=== PATIENT | female | born 1995 | race Caucasian/White ===

== ENCOUNTER 2022-04-28 11:16 | Emergency (ER) | payer OTHER ==
[2022-04-28 12:19] LABS: Appearance Clear (Clear); Bacteria None Seen /HPF (None Seen); Bilirubin Negative (Negative); Blood Negative (Negative); Epithelial Cells Rare /HPF (None Seen); Glucose, Urine Negative (Negative); Hyaline Casts NONE SEEN /LPF (0-2); Ketones Negative (Negative); Leukocyte Esterase Moderate (Negative); Nitrite Negative (Negative); Protein,Urine Dip Negative (Negative); RBC 0-2 /HPF (0-5); Specific Gravity <=1.005 (1.005-1.030); Urobilinogen 0.2 mg/dL (0.2); WBC 21-50 /HPF (0-5)
[2022-04-28 12:20] LABS: ADD URINE CULTURE? YES (NO)
[2022-04-28 12:22] VITALS: O2SAT 98
--- NOTE | 2022-04-28 12:28 | XRAY ---
Indication: Pain. Comparison: None Early OB ultrasound demonstrates single intrauterine with heart rate 155 BPM. Mean crown-rump length measures 6.31 cm corresponding to 12 weeks 5 days.. No subchorionic hemorrhage. Neither ovaries are seen. No suspicious adnexal mass or free fluid. Impression: Single viable intrauterine measuring 12 weeks 5 days. Expected date confinement is November 05, 2022.
[2022-04-28] MEDS ORDERED: Macrobid 100MG Capsule PO ONE (12:49)
--- NOTE | 2022-04-28 12:53 | ERPHSYRPT ---
- History of Present Illness Time Seen by Provider: 04/28/22 12:54 Source: patient Exam Limitations: no limitations Patient Subjective Stated Complaint: PT states "I am 12 weeks and I have had some pain in my belly, hips, and back." Triage Nursing Assessment: Pt presented alert and oriented X 3, skin pwd. Pt ambulates with an upright steady gait, able to speak in clear full sentences pt in no apparent respiratory distress. Physician History: Patient is a 26-year-old female currently 12 weeks presents to our ED for evaluation of pelvic cramps. Symptoms have been ongoing for approximately 2 days. No trauma. No fever. No vaginal discharge. No diarrhea. No nausea or vomiting. No rash. Symptoms are mild to moderate in intensity. No specific worsening improving factors. Patient voices no other complaints or concerns at this time. Portions of this note were created with voice recognition technology. There may be grammatical, spelling, punctuation or sound alike errors Timing/Duration: day(s) (2 days) Severity: moderate Modifying Factors: Improves With: nothing Associated Symptoms: denies symptoms Allergies/Adverse Reactions: amoxicillin Allergy (Severe, Verified 04/28/22 11:35) Rash Sulfa (Sulfonamide Antibiotics) Allergy (Severe, Verified 04/28/22 11:35) Rash Home Medications: Vit37/Iron/Folic Acid [Prenata Chewable Tablet] 1 each PO DAILY 04/28/22 [History] Hx Tetanus, Diphtheria Vaccination/Date Given: Yes Hx Influenza Vaccination/Date Given: No Hx Pneumococcal Vaccination/Date Given: No Immunizations Up to Date: Yes Travel Risk - International Travel Have you traveled outside of the country in past 3 weeks: No - Coronavirus Screening Are you exhibiting any of the following symptoms?: No Close contact with a COVID-19 positive Pt in past 14-21 Days: No - Vaccine Status Have you recieved a Covid-19 vaccination: No - Review of Systems Constitutional: No Symptoms, No Fever, No Chills Eyes: No Symptoms Ears, Nose, & Throat: No Symptoms Respiratory: No Symptoms, No Cough, No Dyspnea Cardiac: No Symptoms, No Chest Pain, No Edema, No Syncope Abdominal/Gastrointestinal: No Symptoms, No Abdominal Pain, No Nausea, No Vomiting, No Diarrhea Genitourinary Symptoms: No Symptoms, No Dysuria Musculoskeletal: No Symptoms, No Back Pain, No Neck Pain Skin: No Symptoms, No Rash Neurological: No Symptoms, No Dizziness, No Focal Weakness, No Sensory Changes Psychological: No Symptoms Endocrine: No Symptoms Hematologic/Lymphatic: No Symptoms Immunological/Allergic: No Symptoms All Other Systems: Reviewed and Negative - Past Medical History Pertinent Past Medical History: No - Past Surgical History Past Surgical History: No - Social History Smoking Status: Former smoker Exposure to second hand smoke: Yes Drug Use: none Patient Lives Alone: No - Female History Hx Last Menstrual Period: 12/2021 Hx Now: Yes Gestational Age: 12 - Nursing Vital Signs Nursing Vital Signs: Initial Vital Signs Temperature 98.2 F 04/28/22 11:28 Pulse Rate 92 H 04/28/22 11:28 Respiratory Rate 20 04/28/22 11:28 Blood Pressure 135/90 04/28/22 11:28 O2 Sat by Pulse Oximetry 100 04/28/22 11:28 Pain Scale Pain Intensity 5 - Physical Exam General Appearance: no apparent distress, alert Eye Exam: PERRL/EOMI, eyes nml inspection Ears, Nose, Throat Exam: normal ENT inspection, TMs normal, pharynx normal, moist mucous membranes Neck Exam: normal inspection, non-tender, supple, full range of motion Respiratory Exam: normal breath sounds, lungs clear, No respiratory distress Cardiovascular Exam: regular rate/rhythm, normal heart sounds, normal peripheral pulses Gastrointestinal/Abdomen Exam: soft, normal bowel sounds, No tenderness, No mass Back Exam: normal inspection, normal range of motion, No CVA tenderness, No vertebral tenderness Extremity Exam: normal inspection, normal range of motion, pelvis stable Neurologic Exam: alert, oriented x 3, cooperative, normal mood/affect, nml cerebellar function, nml station & gait, sensation nml, No motor deficits Skin Exam: normal color, warm, dry, No rash Lymphatic Exam: No adenopathy SpO2 Interpretation: normal SpO2: 98 O2 Delivery: Room Air - Course Nursing assessment & vital signs reviewed: Yes - Radiology Ultrasound Exam OB Ultrasound: tele radiology report (Single viable IUP 12 weeks 5 days.) Ordered Tests: Active Orders 24 hr Category Date Time Status OB <14 WKS 1ST GESTATION [US] Stat Exams 04/28/22 11:34 Completed CULTURE,URINE Stat Lab 04/28/22 11:38 Received UA W/RFX UR CULTURE Stat Lab 04/28/22 11:38 Completed Medication Summary Discontinued Medications Generic Name Dose Route Start Last Admin Trade Name Isaiah PRN Reason Stop Dose Admin Nitrofurantoin Macrocrystals 100 mg 04/28/22 12:49 Nitrofurantoin Macro 100 Mg Capsule PO 04/28/22 12:50 STAT ONE Lab/Rad Data: Laboratory Results 04/28/22 Range/Units 11:38 Urine Color Yellow (Yellow) Urine Appearance Clear (Clear) Urine pH 7.0 (4.6-8.0) Ur Specific [place] <=1.005 (1.005-1.030) Urine Protein Negative (Negative) Urine Glucose (UA) Negative (Negative) mg/dL Urine Ketones Negative (Negative) Urine Blood Negative (Negative) Urine Nitrite Negative (Negative) Urine Bilirubin Negative (Negative) Urine Urobilinogen 0.2 (0.2) mg/dL Ur Leukocyte Esterase Moderate A (Negative) U Hyaline Cast (Auto) NONE SEEN (0-2) /LPF Urine Microscopic RBC 0-2 (0-5) /HPF Urine Microscopic WBC 21-50 A (0-5) /HPF Ur Epithelial Cells Rare (None Seen) /HPF Urine Bacteria None Seen (None Seen) /HPF Urine Culture Reflexed YES (NO) - Progress Progress: improved Progress Note: Patient is a 26-year-old female presents emergency department as referral from her [employer]ILE [employer] physician for evaluation of pelvic cramps. Cramps have been ongoing for approximately 2 days. Physical exam essentially nonremarkable. Patient's complaint is acute in nature. Complexity of problem is moderate. No significant comorbidities to contribute to current symptomology. Evaluation includes a OB ultrasound as well as urinalysis. Ultrasound is negative. It shows a 12-week 5-day-old viable intrauterine . Urinalysis reveals a urinary tract infection. Patient received a dose of Macrobid in our ED. A prescription for Macrobid was forwarded to patient's pharmacy. Case discussed with patient's TEXTILE [employer]IST physician who agrees with plan of care. No further recommendations made by the TEXTILE [employer] physician. Plan of care discussed the patient. She agrees to follow-up with her TEXTILE ARTIST physician within 48 hours. She will picker her Macrobid prescription as discussed. Patient declined Tylenol for pain control. Although patient reassessed and is currently pain-free. Level VM service provided is moderate. Complexity of the problem addressed is low. Complexity of data reviewed and analyzed is moderate. Risk of complication and/or ability/mortality of patient management is low. No critical care time. Patient served as an independent historian. Patient resting comfortably. Patient updated on our work-up findings. Results of our work-up were used for medical decision making. Time spent on discharge was approximately 10 to 15 minutes. Patient voices no other complaints or concerns at this time. Portions of this note were created with voice recognition technology. There may be grammatical, spelling, punctuation or sound alike errors 04/28/22 12:[address] Deon Will see patient in: office Counseled pt/family regarding: lab results, diagnosis, need for follow-up, rad results Medical Desision Making - Diagnostic Testing Diagnostic Testing: Diagnostic tests were ordered,analyzed, and reviewed by me and used in my medical decision making for this patient. Radiologic studies (if ordered) were read by me initially then discussed with the radiologist . - Departure Departure Disposition: Home Clinical Impression: UTI (urinary tract infection) Condition: Stable Critical Care Time: No Referrals: DEMI DEE DO [Primary Care Provider] - Follow up/PCP as directed Additional Instructions: Discharge/Care Plan STEVANHALIE CALDERÓN was seen on 04/28/22 in the Emergency Room. The patient was counseled regarding Diagnosis,Lab results, Imaging studies, need for follow up and when to return to the Emergency Room. Prescriptions given: Discharge Note I have spoken with the patient and/or caregivers. I have explained the patient's condition, diagnosis and treatment plan based on the information available to me at this time. I have answered the patient's and/or caregiver's questions and addressed any concerns. The patient and/or caregivers have as good understanding of the patient's diagnosis, condition and treatment plan as can be expected at this point. The vital signs have been stable. The patient's condition is stable and appropriate for discharge from the emergency department. The patient will pursue further outpatient evaluation with the primary care physician or other designated or consulting physician as outlined in the discharge instructions. The patient and/or caregivers are agreeable to this plan of care and follow-up instructions have been explained in detail. The patient and/or caregivers have received these instruction. The patient/and or caregivers are aware that any significant change in condition or worsening of symptoms should prompt an immediate return to this or the closest emergency department or call 911. Prescriptions: Nitrofurantoin Macro 100 mg [Macrobid 100MG Capsule] 100 mg PO BID 7 Days #14 cap
[2022-04-28] MEDS ORDERED: Macrobid 100MG Capsule ONE (12:54)
[2022-04-28 13:03] VITALS: BP 107/64; PULSE 96
== END 2022-04-28 13:03 | disposition home or self-care (01) ==
LOC: ED 11:16
DX: O23.41 Unspecified infection of urinary tract in pregnancy, first trimester (principal); N39.0 Urinary tract infection, site not specified; Z3A.12 12 weeks gestation of pregnancy; R10.2 Pelvic and perineal pain; Z28.310 Unvaccinated for COVID-19
CPT/HCPCS: 76801; 81001; 87086; 99283; A9270-GY

== ENCOUNTER 2022-08-27 09:36 | Observation (INO) | payer OTHER ==
[2022-08-27 10:36] VITALS: BP 113/71; PULSE 96; O2SAT 100
== END 2022-08-27 11:10 | disposition home or self-care (01) ==
LOC: OB.NST 09:36 → EDSTATUS 09:57 → OB 09:58
PROVIDERS: ADMIT Obstetrics & Gynecology; ATTEND Obstetrics & Gynecology
DX: Z34.83 Encounter for supervision of other normal pregnancy, third trimester (principal); Z3A.30 30 weeks gestation of pregnancy
CPT/HCPCS: G0378; G0379

== ENCOUNTER 2022-10-08 13:27 | Observation (INO) | payer OTHER ==
[2022-10-08] MEDS ORDERED: BRETHINE 1 MG/ML SQ ONE (13:56)
[2022-10-08] MEDS ORDERED: Lactated Ringers 1,000 ML IV ONE (13:56)
[2022-10-08] MEDS ORDERED: Zofran 4 MG/2 ML VIAL IV PRN (14:00)
[2022-10-08] MEDS ORDERED: PITOCIN 30 UNITS/ LR 500 ML 30 UNITS/500 ML PLAST..BAG IV SCH (14:00)
[2022-10-08 14:06] VITALS: RESP 18; TEMP 98.1
[2022-10-08 14:16] LABS: Absolute Neutrophil Ct (ANC) 10.06 x10^3/uL (1.4-6.9); BASOPHIL % 0.5 % (0.0-0.4); Basophil (Absolute #) 0.08 x10^3/uL (0-0.4); Eosinophil % 0.8 % (0.00-5.0); Eosinophil (Absolute #) 0.12 x10^3/uL (0-0.5); Hematocrit 34.7 % (35-47); Hemoglobin 11.3 g/dL (12.0-16.0); IMMATURE GRAN # 0.15 x10^3u/L (0.00-0.03); Lymphocyte (Absolute #) 3.04 x10^3/uL (1.0-4.6); Lymphocytes % 20.6 % (24.0-44.0); Mean Cell Volume 88.5 fL (78-100); Mean Corpuscular Hemoglobin 28.8 pg (26-32); Mean Corpuscular Hgb Concent. 32.6 g/dL (32-36); Mean Platelet Volume 9.6 fL (7.5-11.0); Monocyte (Absolute #) 1.29 x10^3/uL (0.0-1.3); Monocytes % 8.8 % (0.0-12.0); Neutrophil % 68.3 % (36.0-66.0); Platelet Count 246 x10^3/uL (150-450); Red Blood Count 3.92 x10^6/uL (4.1-5.4); Red Cell Distribution Width 12.9 % (11.5-14.0); White Blood Count 14.7 x10^3/uL (4.0-10.5)
[2022-10-08 14:55] LABS: ABO TYPING O; RH TYPING POSITIVE
[2022-10-08 14:56] LABS: Antibody Screen NEGATIVE (NEGATIVE)
[2022-10-08 14:57] LABS: Amphetamine,Urine NEGATIVE (NEGATIVE); Barbiturate,Urine NEGATIVE (NEGATIVE); Benzodiazepine,Urine NEGATIVE (NEGATIVE); Cocaine,Urine NEGATIVE (NEGATIVE); Methadone,Urine NEGATIVE (NEGATIVE); Opiate,Urine NEGATIVE (NEGATIVE); PCP,Urine NEGATIVE (NEGATIVE); THC,Urine NEGATIVE (NEGATIVE)
[2022-10-08 15:04] LABS: Bacteria Few /HPF (None Seen); Bilirubin Negative (Negative); Blood Negative (Negative); Epithelial Cells Many /HPF (None Seen); Glucose, Urine Negative (Negative); Hyaline Casts NONE SEEN /LPF (0-2); Ketones 40 (Negative); Leukocyte Esterase Moderate (Negative); Nitrite Negative (Negative); Protein,Urine Dip Negative (Negative); RBC 0-2 /HPF (0-5); Specific Gravity 1.015 (1.005-1.030); WBC 21-50 /HPF (0-5)
[2022-10-08 15:27] LABS: Appearance Clear (Clear)
[2022-10-08 15:28] LABS: ADD URINE CULTURE? YES (NO)
[2022-10-08 16:31] VITALS: O2SAT 100
[2022-10-08] MEDS ORDERED: TYLENOL EXTRA STRENGTH 500 MG PO PRN (17:51)
[2022-10-08] MEDS ORDERED: TYLENOL EXTRA STRENGTH 500 MG ONE (17:56)
[2022-10-08] MEDS ORDERED: PROCARDIA 10 MG PO ONE (18:17)
[2022-10-08] MEDS ORDERED: PROCARDIA 10 MG ONE (18:42)
[2022-10-08 19:17] VITALS: BP 102/58; PULSE 84
[2022-10-10 12:09] LABS: RPR Non Reactive (Non Reactive)
== END 2022-10-08 19:00 | disposition home or self-care (01) ==
LOC: OB 13:27
PROVIDERS: ADMIT Obstetrics & Gynecology; ATTEND Obstetrics & Gynecology
DX: Z34.83 Encounter for supervision of other normal pregnancy, third trimester (principal); Z3A.35 35 weeks gestation of pregnancy
CPT/HCPCS: 36415; 80307; 81001; 85025; 86592; 86850; 86900; 86901; 87086; G0378; G0379; A9270-GY

== ENCOUNTER 2022-10-13 15:58 | Observation (INO) | payer OTHER ==
[2022-10-13] MEDS ORDERED: Nubain 10 MG/ML IM ONE (16:17)
[2022-10-13 16:36] VITALS: BP 130/75; PULSE 108; RESP 18; TEMP 98.1; O2SAT 98
[2022-10-13 16:39] LABS: Hematocrit 33.8 % (35-47); Hemoglobin 10.7 g/dL (12.0-16.0); Mean Cell Volume 90.6 fL (78-100); Mean Corpuscular Hemoglobin 28.7 pg (26-32); Mean Corpuscular Hgb Concent. 31.7 g/dL (32-36); Mean Platelet Volume 9.9 fL (7.5-11.0); Platelet Count 236 x10^3/uL (150-450); Red Blood Count 3.73 x10^6/uL (4.1-5.4); White Blood Count 12.6 x10^3/uL (4.0-10.5)
[2022-10-13 17:06] LABS: ALBUMIN 3.4 g/dL (3.5-5.0); ALKALINE PHOSPHATASE 113 U/L (38-126); ANION GAP 11.5 MEQ/L (5-15); BLOOD UREA NITROGEN 4 mg/dL (7-17); CHLORIDE 105 mmol/L (98-107); Calcium 8.7 mg/dL (8.4-10.2); Carbon Dioxide 22 mmol/L (22-30); Creatinine 1 0.36 mg/dL (0.52-1.04); EST GLOMERULAR FILTRATION RATE > 60.0 ML/MIN; Glucose 86 mg/dL (74-106); Potassium 3.9 mmol/L (3.5-5.1); SGOT/AST 27 U/L (14-36); SGPT/ALT 24 U/L (0-35); SODIUM 135 mmol/L (137-145); Total Protein 6.7 g/dL (6.3-8.2); Uric Acid 2.7 mg/dL (2.6-6.0)
[2022-10-13 17:09] LABS: Creatinine, Urine Random 42.4 mg/dl; Protein Creatinine Ratio, Ran. 0.28 mg/mg (0.0-0.15)
[2022-10-13 17:10] LABS: Appearance Clear (Clear); Bacteria None Seen /HPF (None Seen); Bilirubin Negative (Negative); Blood Negative (Negative); Epithelial Cells Few /HPF (None Seen); Glucose, Urine Negative (Negative); Hyaline Casts NONE SEEN /LPF (0-2); Ketones Negative (Negative); Leukocyte Esterase Small (Negative); Nitrite Negative (Negative); Protein,Urine Dip Negative (Negative); RBC 0-2 /HPF (0-5)
[2022-10-13 17:13] LABS: ADD URINE CULTURE? NO (NO)
== END 2022-10-13 18:10 | disposition home or self-care (01) ==
LOC: OB 15:58
PROVIDERS: ADMIT Obstetrics & Gynecology; ATTEND Obstetrics & Gynecology
DX: Z34.83 Encounter for supervision of other normal pregnancy, third trimester (principal); Z3A.36 36 weeks gestation of pregnancy
CPT/HCPCS: 36415; 80053; 81001; 82570; 84156; 84550; 85027; G0378; G0379

== ENCOUNTER 2022-10-29 02:15 | Inpatient (IN) | payer OTHER ==
[2022-10-29] MEDS ORDERED: XYLOCAINE 1% HCL 20 ML MDV IJ PRN (11:48)
[2022-10-29] MEDS ORDERED: CYTOTEC PO SCH (16:45)
[2022-10-29] MEDS: CYTOTEC PO SCH ×4 (17:55→23:58)
[2022-10-29 18:01] LABS: Absolute Neutrophil Ct (ANC) 9.09 x10^3/uL (1.4-6.9); BASOPHIL % 0.3 % (0.0-0.4); Basophil (Absolute #) 0.04 x10^3/uL (0-0.4); Eosinophil % 0.9 % (0.00-5.0); Eosinophil (Absolute #) 0.13 x10^3/uL (0-0.5); Hematocrit 34.2 % (35-47); Hemoglobin 10.9 g/dL (12.0-16.0); IMMATURE GRAN # 0.09 x10^3u/L (0.00-0.03); IMMATURE GRAN % 0.6 % (0.00-0.4); Lymphocytes % 25.1 % (24.0-44.0); Mean Cell Volume 88.1 fL (78-100); Mean Corpuscular Hemoglobin 28.1 pg (26-32); Mean Corpuscular Hgb Concent. 31.9 g/dL (32-36); Mean Platelet Volume 10.2 fL (7.5-11.0); Monocyte (Absolute #) 1.07 x10^3/uL (0.0-1.3); Monocytes % 7.7 % (0.0-12.0); Neutrophil % 65.4 % (36.0-66.0); Platelet Count 243 x10^3/uL (150-450); Red Blood Count 3.88 x10^6/uL (4.1-5.4); Red Cell Distribution Width 13.4 % (11.5-14.0); White Blood Count 13.9 x10^3/uL (4.0-10.5)
[2022-10-29 18:36] LABS: Amphetamine,Urine NEGATIVE (NEGATIVE); Barbiturate,Urine NEGATIVE (NEGATIVE); Benzodiazepine,Urine NEGATIVE (NEGATIVE); Cocaine,Urine NEGATIVE (NEGATIVE); Methadone,Urine NEGATIVE (NEGATIVE); Opiate,Urine NEGATIVE (NEGATIVE); PCP,Urine NEGATIVE (NEGATIVE); THC,Urine NEGATIVE (NEGATIVE)
[2022-10-29 19:00] LABS: ABO TYPING O; Antibody Screen NEGATIVE (NEGATIVE); RH TYPING POSITIVE
[2022-10-29] MEDS ORDERED: Zofran 4 MG/2 ML VIAL IV PRN (20:00)
[2022-10-30] MEDS: CYTOTEC PO SCH (01:58)
[2022-10-30] MEDS ORDERED: CLINDAMYCIN-D5W 900 MG/50 ML*** 900 MG/50 ML BAG IV ONE (02:31)
[2022-10-30] MEDS ORDERED: Lactated Ringers 1,000 ML IV ONE ×3 (03:01→06:00)
[2022-10-30] MEDS ORDERED: Lactated Ringers 1,000 ML IV SCH (04:00)
[2022-10-30] MEDS ORDERED: PITOCIN 30 UNITS/ LR 500 ML 30 UNITS/500 ML PLAST..BAG IV SCH ×2 (06:00→12:00)
[2022-10-30] MEDS ORDERED: FENTANYL 2 MCG-BUPIV 0.125%-NS 250 ML Epidur 250 ML EPIDURAL SCH (07:00)
[2022-10-30] MEDS ORDERED: Ephedrine Sulfate 50 MG/ML IV PRN (08:00)
[2022-10-30] MEDS ORDERED: CLINDAMYCIN-D5W 900 MG/50 ML*** 900 MG/50 ML BAG IV SCH (08:00)
[2022-10-30] MEDS ORDERED: TUCKS TP PRN (10:27)
[2022-10-30] MEDS ORDERED: LANSINOH 40 GM TOP PRN ×2 (10:31→13:00)
[2022-10-30] MEDS ORDERED: Dermoplast Spray TP PRN (12:23)
[2022-10-30] MEDS ORDERED: Mylicon 80MG PO PRN (13:00)
[2022-10-30] MEDS: TYLENOL EXTRA STRENGTH 500 MG PO PRN ×2 (13:37→18:09)
[2022-10-30] MEDS ORDERED: NORCO 5/325 MG PO PRN (16:00)
[2022-10-30] MEDS ORDERED: MOTRIN 400 MG PO PRN (16:00)
[2022-10-30] MEDS: MOTRIN 400 MG PO PRN ×2 (16:50→23:35)
[2022-10-30] MEDS: Docusate Sodium 100 MG PO SCH (21:08)
[2022-10-31] MEDS: TYLENOL EXTRA STRENGTH 500 MG PO PRN ×2 (02:12→12:56)
[2022-10-31 07:47] LABS: Absolute Neutrophil Ct (ANC) 7.64 x10^3/uL (1.4-6.9); BASOPHIL % 0.7 % (0.0-0.4); Eosinophil % 1.8 % (0.00-5.0); Eosinophil (Absolute #) 0.24 x10^3/uL (0-0.5); Hematocrit 35.2 % (35-47); Hemoglobin 11.3 g/dL (12.0-16.0); IMMATURE GRAN # 0.07 x10^3u/L (0.00-0.03); IMMATURE GRAN % 0.5 % (0.00-0.4); Lymphocyte (Absolute #) 4.34 x10^3/uL (1.0-4.6); Lymphocytes % 32.1 % (24.0-44.0); Mean Cell Volume 89.6 fL (78-100); Mean Corpuscular Hemoglobin 28.8 pg (26-32); Mean Corpuscular Hgb Concent. 32.1 g/dL (32-36); Mean Platelet Volume 10.1 fL (7.5-11.0); Monocyte (Absolute #) 1.15 x10^3/uL (0.0-1.3); Monocytes % 8.5 % (0.0-12.0); Neutrophil % 56.4 % (36.0-66.0); Platelet Count 245 x10^3/uL (150-450); Red Blood Count 3.93 x10^6/uL (4.1-5.4); Red Cell Distribution Width 13.5 % (11.5-14.0); White Blood Count 13.5 x10^3/uL (4.0-10.5)
[2022-10-31] MEDS: MOTRIN 400 MG PO PRN (08:20)
[2022-10-31 09:19] VITALS: RESP 16; TEMP 97.8
[2022-10-31] MEDS ORDERED: Adacel Vial IM ONE (10:00)
[2022-10-31] MEDS ORDERED: FERREX 150 PO SCH (10:00)
--- NOTE | 2022-10-31 10:50 | PCM.NOTE ---
Date and Time: 10/31/22 1049 Subjective Assessment: ppd 1 sp pt resting in bed and doing well able to ambulate and tolerate diet. vss afebrile abd; soft uterus; firm lochia;mild a/p sp ppd 1 desires to go home today should fu in office in 3 wks OBJECTIVE DATA Vital Signs: Vital Signs - 24 hr Temp Pulse Resp BP Pulse Ox 10/31/22 08:00 97.8 F 78 16 116/69 98 10/31/22 02:05 97.7 F 80 20 111/68 100 10/30/22 20:00 97.9 F 87 18 102/62 98 10/30/22 18:30 98.2 F 75 16 100/50 98 10/30/22 14:00 97.8 F 93 H 16 115/64 98 10/30/22 12:30 98 F 81 16 104/52 100 10/30/22 11:30 97.9 F 96 H 16 149/60 99 Pain Assessment - Last Documented Pain Intensity [Lower] 7 Pain Intensity 5 Pain Scale Used 0-10 Pain Scale Intake and Output: Intake & Output 10/28/22 10/29/22 10/30/22 10/31/22 11:59 11:59 11:59 11:59 Intake Total 100 1200 Output Total 600 Balance -500 1200 Weight 79.379 kg Lab Results: Lab Results-Last 24 Hours 10/31/22 Range/Units 07:42 WBC 13.5 H (4.0-10.5) x10^3/uL RBC 3.93 L (4.1-5.4) x10^6/uL Hgb 11.3 L (12.0-16.0) g/dL Hct 35.2 (35-47) % MCV 89.6 (78-100) fL MCH 28.8 (26-32) pg MCHC 32.1 (32-36) g/dL RDW 13.5 (11.5-14.0) % Plt Count 245 (150-450) x10^3/uL MPV 10.1 (7.5-11.0) fL Gran % 56.4 (36.0-66.0) % Immature Gran % (Auto) 0.5 H (0.00-0.4) % Nucleat RBC Rel Count 0.0 (0.00-0.1) % Eos # (Auto) 0.24 (0-0.5) x10^3/uL Immature Gran # (Auto) 0.07 H (0.00-0.03) x10^3u/L Absolute Lymphs (auto) 4.34 (1.0-4.6) x10^3/uL Absolute Monos (auto) 1.15 (0.0-1.3) x10^3/uL Absolute Nucleated RBC 0.00 (0.00-0.01) x10^3u/L Lymphocytes % 32.1 (24.0-44.0) % Monocytes % 8.5 (0.0-12.0) % Eosinophils % 1.8 (0.00-5.0) % Basophils % 0.7 (0.0-0.4) % Absolute Granulocytes 7.64 H (1.4-6.9) x10^3/uL Basophils # 0.10 (0-0.4) x10^3/uL Assessment/Plan (1) Vaginal delivery Current Visit: Yes Status: Acute Code(s): O80 - ENCOUNTER FOR FULL-TERM UNCOMPLICATED DELIVERY
--- NOTE | 2022-10-31 10:52 | PCM.DS ---
Discharge Summary Date of Admission: 10/30/22 02:15 Admitting Physician: DEMI DEE DO Primary Care Provider: DEMI DEE DO Allergies Allergies amoxicillin Allergy (Severe, Verified 10/08/22 14:07) Rash Sulfa (Sulfonamide Antibiotics) Allergy (Severe, Verified 10/08/22 14:07) Rash Hospital Summary - Hospital Course Hospital Course: pt admitted on october 29 for oral cytotec induction at 39 wks gestation and was subsequently started on pitocin on oct 30 and subsequently delivered live baby girl without complication via . during period did very well able to ambulate and tolerate diet and at this time desires to be discharged home. pt with stable hgb at 11 and was advised to fu in office in 3 wks. all questions answered to her satisfaction. - Vitals & Intake/Output Vital Signs: Vital Signs Temperature 97.8 F 10/31/22 08:00 Pulse Rate 78 10/31/22 08:00 Respiratory Rate 16 10/31/22 08:00 Blood Pressure 116/69 10/31/22 08:00 O2 Sat by Pulse Oximetry 98 10/31/22 08:00 Intake & Output: Intake & Output 10/28/22 10/29/22 10/30/22 10/31/22 11:59 11:59 11:59 11:59 Intake Total 100 1200 Output Total 600 Balance -500 1200 Weight 79.379 kg - Lab Result Diagrams: 10/31/22 07:42 Lab Results-Last 24 Hrs: Lab Results-Last 24 Hours 10/31/22 Range/Units 07:42 WBC 13.5 H (4.0-10.5) x10^3/uL RBC 3.93 L (4.1-5.4) x10^6/uL Hgb 11.3 L (12.0-16.0) g/dL Hct 35.2 (35-47) % MCV 89.6 (78-100) fL MCH 28.8 (26-32) pg MCHC 32.1 (32-36) g/dL RDW 13.5 (11.5-14.0) % Plt Count 245 (150-450) x10^3/uL MPV 10.1 (7.5-11.0) fL Gran % 56.4 (36.0-66.0) % Immature Gran % (Auto) 0.5 H (0.00-0.4) % Nucleat RBC Rel Count 0.0 (0.00-0.1) % Eos # (Auto) 0.24 (0-0.5) x10^3/uL Immature Gran # (Auto) 0.07 H (0.00-0.03) x10^3u/L Absolute Lymphs (auto) 4.34 (1.0-4.6) x10^3/uL Absolute Monos (auto) 1.15 (0.0-1.3) x10^3/uL Absolute Nucleated RBC 0.00 (0.00-0.01) x10^3u/L Lymphocytes % 32.1 (24.0-44.0) % Monocytes % 8.5 (0.0-12.0) % Eosinophils % 1.8 (0.00-5.0) % Basophils % 0.7 (0.0-0.4) % Absolute Granulocytes 7.64 H (1.4-6.9) x10^3/uL Basophils # 0.10 (0-0.4) x10^3/uL Final Diagnosis/Problem List - Final Discharge Diagnosis/Problem (1) Vaginal delivery Current Visit: Yes Status: Acute Code(s): O80 - ENCOUNTER FOR FULL-TERM UNCOMPLICATED DELIVERY - Discharge Disposition: Home, Self-Care Condition: Stable Prescriptions: No Action Vit37/Iron/Folic Acid [Prenata Chewable Tablet] 1 each PO DAILY Valacyclovir HCl [Valacyclovir] 500 mg PO Q12H Follow up with: DEMI DEE DO [Primary Care Provider] - 3 weeks
[2022-10-31] MEDS: Docusate Sodium 100 MG PO SCH (10:59)
[2022-10-31 12:23] LABS: RPR Non Reactive (Non Reactive)
[2022-10-31 17:41] VITALS: BP 110/69; PULSE 96; O2SAT 99
== END 2022-10-31 16:30 | disposition home or self-care (01) | DRG 807 ==
LOC: OB 02:15 → OBSVTOIN 10-30 02:15
PROVIDERS: ADMIT Obstetrics & Gynecology; ATTEND Obstetrics & Gynecology
PROC: 10E0XZZ Delivery of Products of Conception, External Approach (ICD-10-PCS; principal; 2022-10-30)
PROC: 0KQM0ZZ Repair Perineum Muscle, Open Approach (ICD-10-PCS; 2022-10-30)
DX: O70.1 Second degree perineal laceration during delivery (principal); Z37.0 Single live birth; Z3A.39 39 weeks gestation of pregnancy; Z20.828 Contact with and (suspected) exposure to other viral communicable diseases
CPT/HCPCS: 36415; 80307; 85025; 86592; 86850; 86900; 86901; 90471; 90715; G0378; G0379; J2590; A9270-GY

== ENCOUNTER 2023-09-07 06:44 | Emergency (ER) | payer OTHER ==
[2023-09-07 07:04] VITALS: TEMP 98.4
--- NOTE | 2023-09-07 07:41 | ERPHSYRPT ---
- History of Present Illness Time Seen by Provider: 09/07/23 07:30 Historian: patient Exam Limitations: no limitations Patient Subjective Stated Complaint: pt states she woke up with lower abd pain, rates 6/10 and describes as cramping Triage Nursing Assessment: pt alert and oriented, answers questions approp. pt ambulates without diff. steady gait noted. respirations nonlabored. skin warm and dry. abd soft and nontender to light palpation. 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 Quiñonez and presents with lower abdominal pain that began suddenly this morning at approxi mately 6 AM at the time of sexual intercourse. Patient states that she had severe, sharp pain that felt like something was tearing. Since that occurred she has had intermittent nausea and cramping in her lower abdomen. She also states that she has had some vaginal bleeding intermittently since that occurred. Patient does not ordinarily have menstrual period secondary to her control that she is taking. Patient has a history of prolapsed uterus after delivering her daughter in October 2022. Patient has no chest pain. She has no shortness of breath. Patient is refusing any type of pain medicine at this time. She also does not want to have an IV placed unless she absolutely has to. Timing/Duration: today Quality: cramping Abdominal Pain Onset Location: RLQ, LLQ Pain Radiation: no radiation Severity of Pain-Max: moderate Severity of Pain-Current: moderate Modifying Factors: Improves With: nothing Associated Symptoms: nausea, other (Intermittent vaginal bleeding) Previous symptoms: no prior history, no recent treatment Allergies/Adverse Reactions: amoxicillin Allergy (Severe, Verified 09/07/23 07:04) Rash Sulfa (Sulfonamide Antibiotics) Allergy (Severe, Verified 09/07/23 07:04) Rash Home Medications: Norethindrone 0.35 mg PO DAILY 09/07/23 [History] Hx Tetanus, Diphtheria Vaccination/Date Given: Yes Hx Influenza Vaccination/Date Given: No Hx Pneumococcal Vaccination/Date Given: No Immunizations Up to Date: Yes Travel Risk - International Travel Have you traveled outside of the country in past 3 weeks: No - Emerging Infectious Disease Are you exhibiting symptoms associated with any current EIDs: No - Review of Systems Constitutional: No Symptoms Eyes: No Symptoms Ears, Nose, & Throat: No Symptoms Respiratory: No Symptoms Cardiac: No Symptoms Abdominal/Gastrointestinal: No Symptoms, Abdominal Pain (Suprapubic and bilateral lower quadrant) Genitourinary Symptoms: Vaginal Bleeding Musculoskeletal: No Symptoms Skin: No Symptoms Neurological: No Symptoms Psychological: No Symptoms Endocrine: No Symptoms Hematologic/Lymphatic: No Symptoms Immunological/Allergic: No Symptoms All Other Systems: Reviewed and Negative - Past Medical History Pertinent Past Medical History: Yes Neurological History: No Pertinent History ENT History: No Pertinent History Cardiac History: No Pertinent History Respiratory History: No Pertinent History Endocrine Medical History: No Pertinent History Musculoskeletal History: No Pertinent History GI Medical History: No Pertinent History History: No Pertinent History Psycho-Social History: No Pertinent History Female Reproductive Disorders: No Pertinent History Other Medical History: prolapsed uterus after having daughter- oct 2022 - Past Surgical History Past Surgical History: No Neuro Surgical History: No Pertinent History Cardiac: No Pertinent History Respiratory: No Pertinent History Gastrointestinal: No Pertinent History Genitourinary: No Pertinent History Musculoskeletal: No Pertinent History Female Surgical History: No Pertinent History - Female History Hx Last Menstrual Period: no period with bc Hx Now: No - Social History Smoking Status: Never smoker Exposure to second hand smoke: No Drug Use: none Patient Lives Alone: No - Social Determinants of Health Do you worry about a steady place to live?: No Do you have any problems with any of the following?: No known problems In the past 12 months,have you had to go without utilities?: No Transportation Issues: No Has anyone in your support network made you feel unsafe?: No Have you or anyone in your house had to go without enough: No - Nursing Vital Signs Nursing Vital Signs: Initial Vital Signs Temperature 98.4 F 09/07/23 06:48 Pulse Rate 78 09/07/23 06:48 Respiratory Rate 16 09/07/23 06:48 Blood Pressure 112/76 09/07/23 06:48 O2 Sat by Pulse Oximetry 100 09/07/23 06:48 Pain Scale Pain Intensity 6 - Physical Exam General Appearance: no apparent distress, alert, anxiety Eye Exam: PERRL/EOMI, eyes nml inspection Ears, Nose, Throat Exam: normal ENT inspection, moist mucous membranes Neck Exam: normal inspection, non-tender, supple, full range of motion Respiratory Exam: airway intact, No chest tenderness, No respiratory distress Gastrointestinal/Abdomen Exam: soft, normal bowel sounds, tenderness (Bilateral lower quadrants and suprapubic midline), guarding (With palpation), rebound (W ith palpation in same region) Pelvic Exam: not done Rectal Exam: not done Back Exam: normal inspection, normal range of motion, No CVA tenderness, No vertebral tenderness Extremity Exam: normal inspection, normal range of motion, pelvis stable Neurologic Exam: alert, oriented x 3, cooperative, sat act instructor II-XII nml as tested, nml cerebellar function, nml station & gait, sensation nml Skin Exam: normal color, warm, dry Lymphatic Exam: No adenopathy SpO2 Interpretation: normal SpO2: 100 O2 Delivery: Room Air - Course Nursing assessment & vital signs reviewed: Yes Ordered Tests: Active Orders 24 hr Category Date Time Status IV Insertion STAT Care 09/07/23 07:43 Active ABDOMEN AND PELVIS W/0 CONTRAS [CT] Stat Exams 09/07/23 07:43 Completed AMYLASE Stat Lab 09/07/23 08:18 Completed CBC W DIFF Stat Lab 09/07/23 08:18 Completed CMP Stat Lab 09/07/23 08:18 Completed CULTURE,URINE Stat Lab 09/07/23 07:48 Received HCG QUALITATIVE, SERUM Stat Lab 09/07/23 08:18 Completed LIPASE Stat Lab 09/07/23 08:18 Completed UA W/RFX UR CULTURE Stat Lab 09/07/23 07:48 Completed Medication Summary Discontinued Medications Generic Name Dose Route Start Last Admin Trade Name Isaiah PRN Reason Stop Dose Admin Ondansetron HCl 4 mg 09/07/23 07:58 09/07/23 08:00 Ondansetron Hcl 4 Mg/2 Ml Vial IV 09/07/23 07:59 Not Given STAT ONE Ondansetron HCl 4 mg 09/07/23 08:01 09/07/23 08:21 Zofran 4 Mg/Udtablet Orally Disintegrating PO 09/07/23 08:02 4 mg STAT ONE Administration Ondansetron HCl Confirm 09/07/23 08:20 Zofran 4 Mg/Udtablet Orally Disintegrating Administered 09/07/23 08:21 Dose 4 mg .ROUTE .STK-MED ONE Lab/Rad Data: Laboratory Result Diagrams 09/07/23 08:18 09/07/23 08:18 Laboratory Results 09/07/23 09/07/23 09/07/23 Range/Units 08:18 08:18 08:18 WBC 7.8 (3.98-10.04) x10^3/uL RBC 4.34 (3.93-5.22) x10^6/uL Hgb 12.5 (11.2-15.7) g/dL Hct 38.9 (34.1-44.9) % MCV 89.6 (79.4-94.8) fL MCH 28.8 (25.6-32.2) pg MCHC 32.1 L (32.2-35.5) g/dL RDW 12.5 (11.7-14.4) % Plt Count 310 (182-369) x10^3/uL MPV 9.8 (9.4-12.3) fL Gran % 58.9 (34.0-71.1) % Immature Gran % (Auto) 0.3 (0.001-0.429) % Nucleat RBC Rel Count 0.0 (0.00-0.2) % Eos # (Auto) 0.16 (0.04-0.36) x10^3/uL Immature Gran # (Auto) 0.02 (0.001-0.031) x10^3u/L Absolute Lymphs (auto) 2.33 (1.18-3.74) x10^3/uL Absolute Monos (auto) 0.65 (0.24-0.86) x10^3/uL Absolute Nucleated RBC 0.00 (0.00-0.012) x10^3u/L Lymphocytes % 29.7 (19.3-51.7) % Monocytes % 8.3 (4.7-12.5) % Eosinophils % 2.0 (0.7-5.8) % Basophils % 0.8 (0.1-1.2) % Absolute Granulocytes 4.62 (1.56-6.13) x10^3/uL Basophils # 0.06 (0.01-0.08) x10^3/uL Sodium 139 (135-145) mmol/L Potassium 4.4 (3.5-5.1) mmol/L Chloride 108 H (98-107) mmol/L Carbon Dioxide 24 (22-30) mmol/L Anion Gap 11.0 (5-15) MEQ/L BUN 8 (7-17) mg/dL Creatinine 0.63 (0.52-1.04) mg/dL Estimated GFR 123.1 ML/MIN Glucose 94 (74-106) mg/dL Calcium 9.3 (8.4-10.2) mg/dL Total Bilirubin 0.50 (0.2-1.3) mg/dL AST 17 (14-36) U/L ALT 12 (0-35) U/L Alkaline Phosphatase 72 (38-126) U/L Serum Total Protein 7.2 (6.3-8.2) g/dL Albumin 4.3 (3.5-5.0) g/dL Amylase 88 (30-110) U/L Lipase 124 (23-300) U/L Serum HCG, Qual NEGATIVE (NEGATIVE) Urine Color (Yellow) Urine Appearance (Clear) Urine pH (4.6-8.0) Ur Specific [place] (1.005-1.030) Urine Protein (Negative) Urine Glucose (UA) (Negative) mg/dL Urine Ketones (Negative) Urine Blood (Negative) Urine Nitrite (Negative) Urine Bilirubin (Negative) Urine Urobilinogen (0.2) mg/dL Ur Leukocyte Esterase (Negative) U Hyaline Cast (Auto) (0-2) /LPF Urine Microscopic RBC (0-5) /HPF Urine Microscopic WBC (0-5) /HPF Ur Epithelial Cells (None Seen) /HPF Urine Bacteria (None Seen) /HPF Urine Culture Reflexed (NO) 09/07/23 Range/Units 07:48 WBC (3.98-10.04) x10^3/uL RBC (3.93-5.22) x10^6/uL Hgb (11.2-15.7) g/dL Hct (34.1-44.9) % MCV (79.4-94.8) fL MCH (25.6-32.2) pg MCHC (32.2-35.5) g/dL RDW (11.7-14.4) % Plt Count (182-369) x10^3/uL MPV (9.4-12.3) fL Gran % (34.0-71.1) % Immature Gran % (Auto) (0.001-0.429) % Nucleat RBC Rel Count (0.00-0.2) % Eos # (Auto) (0.04-0.36) x10^3/uL Immature Gran # (Auto) (0.001-0.031) x10^3u/L Absolute Lymphs (auto) (1.18-3.74) x10^3/uL Absolute Monos (auto) (0.24-0.86) x10^3/uL Absolute Nucleated RBC (0.00-0.012) x10^3u/L Lymphocytes % (19.3-51.7) % Monocytes % (4.7-12.5) % Eosinophils % (0.7-5.8) % Basophils % (0.1-1.2) % Absolute Granulocytes (1.56-6.13) x10^3/uL Basophils # (0.01-0.08) x10^3/uL Sodium (135-145) mmol/L Potassium (3.5-5.1) mmol/L Chloride (98-107) mmol/L Carbon Dioxide (22-30) mmol/L Anion Gap (5-15) MEQ/L BUN (7-17) mg/dL Creatinine (0.52-1.04) mg/dL Estimated GFR ML/MIN Glucose (74-106) mg/dL Calcium (8.4-10.2) mg/dL Total Bilirubin (0.2-1.3) mg/dL AST (14-36) U/L ALT (0-35) U/L Alkaline Phosphatase (38-126) U/L Serum Total Protein (6.3-8.2) g/dL Albumin (3.5-5.0) g/dL Amylase (30-110) U/L Lipase (23-300) U/L Serum HCG, Qual (NEGATIVE) Urine Color Yellow (Yellow) Urine Appearance Clear (Clear) Urine pH 5.5 (4.6-8.0) Ur Specific [place] 1.025 (1.005-1.030) Urine Protein Trace A (Negative) Urine Glucose (UA) Negative (Negative) mg/dL Urine Ketones Trace A (Negative) Urine Blood Large A (Negative) Urine Nitrite Negative (Negative) Urine Bilirubin Negative (Negative) Urine Urobilinogen 1.0 A (0.2) mg/dL Ur Leukocyte Esterase Negative (Negative) U Hyaline Cast (Auto) NONE SEEN (0-2) /LPF Urine Microscopic RBC 51-100 A (0-5) /HPF Urine Microscopic WBC 3-5 (0-5) /HPF Ur Epithelial Cells Rare (None Seen) /HPF Urine Bacteria None Seen (None Seen) /HPF Urine Culture Reflexed YES (NO) - Progress Progress Note: 09/07/23 08:05 My medical decision making and the assignment of moderate complexity to this patient's medical issue today is based on review of the patient's past medical history, review the patient's medication list, review patient drug allergy list, history present illness and physical findings on examination. The workup in this patient includes CBC, CMP, urinalysis, amylase, lipase, hCGserum, CT scan of the abdomen pelvis without contrast. Differential diagnosis includes but is not limited to acute appendicitis, pyelonephritis, cystitis, other acute intra-abdominal/intrapelvic abnormality 09/07/23 09:27 I interpreted the patient's laboratory data results. Patient does have hematuria. No other significant findings to suggest acute, emergent medical issue. I did speak with the patient's PALLETISER OPERATOR, Dr. Quiñonez. I did discuss with him the chief complaint, physical findings on examination and the results of the laboratory workup. The CT scan of the abdomen and pelvis results were not back yet. However, he stated to have the patient call his office today to make arrangements for a follow-up appointment in the next 3 to 5 days. 09/07/23 10:[address] scan of the abdomen pelvis without contrast was interpreted by the radiologist and I reviewed the impression. Impression states prominent uterus with cul-de-sac fluid presumed to be physiologic from ruptured/leaking cyst. No free air. Normal appendix present. Counseled pt/family regarding: lab results, diagnosis, need for follow-up, rad results Medical Desision Making - Independent Historian Additional History obtained from: Spouse - Diagnostic Testing Diagnostic test were ordered, analyzed, and reviewed by me: Yes Radiological Interpretation: Reviewed by me, Teleradiologist Report - Risk of complications Minimal Risk: Minimal risk of morbidity - Departure Departure Disposition: Home Clinical Impression: Dyspareunia, Hematuria Condition: Stable Critical Care Time: No Referrals: DEMI QUIÑONEZ DO [Primary Care Provider] - Follow up/PCP as directed Additional Instructions: Drink plenty of fluids. Take all your medications as prescribed. Use Tylenol and ibuprofen for pain control. Call your PALLETISER OPERATOR office today, 07/08/2023, to make arrangements for follow-up appointment for further evaluation and man agement and to be seen within the next 3 to 5 days. Prescriptions: Ondansetron ODT 4 MG [Zofran Odt 4 mg] 4 mg PO Q6H PRN PRN #10 tablet PRN Reason: Vomiting
[2023-09-07] MEDS: Zofran 4 MG/2 ML VIAL IV ONE (08:00)
[2023-09-07] MEDS ORDERED: ZOFRAN ODT 4 MG ONE (08:20)
[2023-09-07 08:21] LABS: Appearance Clear (Clear); Bacteria None Seen /HPF (None Seen); Bilirubin Negative (Negative); Blood Large (Negative); Epithelial Cells Rare /HPF (None Seen); Glucose, Urine Negative (Negative); Hyaline Casts NONE SEEN /LPF (0-2); Ketones Trace (Negative); Leukocyte Esterase Negative (Negative); Nitrite Negative (Negative); Ph 5.5 (4.6-8.0); Protein,Urine Dip Trace (Negative); RBC 51-100 /HPF (0-5); Specific Gravity 1.025 (1.005-1.030)
[2023-09-07] MEDS: ZOFRAN ODT 4 MG PO ONE (08:21)
[2023-09-07 08:30] LABS: ADD URINE CULTURE? YES (NO)
[2023-09-07 08:31] LABS: Absolute Neutrophil Ct (ANC) 4.62 x10^3/uL (1.56-6.13); BASOPHIL % 0.8 % (0.1-1.2); Basophil (Absolute #) 0.06 x10^3/uL (0.01-0.08); Eosinophil (Absolute #) 0.16 x10^3/uL (0.04-0.36); Hematocrit 38.9 % (34.1-44.9); Hemoglobin 12.5 g/dL (11.2-15.7); IMMATURE GRAN # 0.02 x10^3u/L (0.001-0.031); IMMATURE GRAN % 0.3 % (0.001-0.429); Lymphocyte (Absolute #) 2.33 x10^3/uL (1.18-3.74); Lymphocytes % 29.7 % (19.3-51.7); Mean Cell Volume 89.6 fL (79.4-94.8); Mean Corpuscular Hemoglobin 28.8 pg (25.6-32.2); Mean Corpuscular Hgb Concent. 32.1 g/dL (32.2-35.5); Mean Platelet Volume 9.8 fL (9.4-12.3); Monocyte (Absolute #) 0.65 x10^3/uL (0.24-0.86); Monocytes % 8.3 % (4.7-12.5); Neutrophil % 58.9 % (34.0-71.1); Platelet Count 310 x10^3/uL (182-369); Red Blood Count 4.34 x10^6/uL (3.93-5.22); Red Cell Distribution Width 12.5 % (11.7-14.4); White Blood Count 7.8 x10^3/uL (3.98-10.04)
[2023-09-07 08:50] LABS: ALBUMIN 4.3 g/dL (3.5-5.0); BILIRUBIN,TOTAL 0.5 mg/dL (0.2-1.3); Calcium 9.3 mg/dL (8.4-10.2); Creatinine 1 0.63 mg/dL (0.52-1.04); EST GLOMERULAR FILTRATION RATE 123.1 ML/MIN; Potassium 4.4 mmol/L (3.5-5.1); Total Protein 7.2 g/dL (6.3-8.2)
[2023-09-07 08:53] VITALS: RESP 17
[2023-09-07 09:01] LABS: HCG SERUM TEST NEGATIVE (NEGATIVE)
[2023-09-07 09:29] VITALS: O2SAT 100
--- NOTE | 2023-09-07 09:57 | XRAY ---
Indication: Lower abdominal pain, cramping, and bleeding. Multiple contiguous axial images obtained through the abdomen and pelvis without contrast. Impression: None Lung bases clear. Heart not enlarged. Noncontrasted stomach and bowel loops appear nonobstructed. Normal appendix. Prominent uterus. Small cul-de-sac fluid presumed physiologic from rupture/leaking cyst. No free air. Remaining liver, gallbladder, pancreas, spleen, adrenal glands, kidneys, ureters, bladder, uterus, and aorta are unremarkable for noncontrast exam. Osseous structures intact. Impression: 1. Prominent uterus with cul-de-sac fluid. Query current menses. Pelvic sonogram may yield further information if clinically warranted. 2. Remaining CT abdomen/pelvis without contrast exam is negative.
[2023-09-07 10:01] VITALS: PULSE 70
[2023-09-07 10:31] VITALS: BP 106/68
== END 2023-09-07 10:30 | disposition home or self-care (01) ==
LOC: ED 06:44
DX: N94.10 Unspecified dyspareunia (principal); R31.9 Hematuria, unspecified; R10.30 Lower abdominal pain, unspecified; R11.0 Nausea
CPT/HCPCS: 36415; 74176; 80053; 81001; 82150; 83690; 84703; 85025; 87086; 99283; Q0162